=== PATIENT | male | born 1930 | race Caucasian/White ===

== ENCOUNTER 2018-11-08 00:32 | Emergency (ER) | payer OTHER ==
[~2018-11-08] VITALS: Ht 182.9 cm; Wt 72.0 kg
[~2018-11-08 00:32] MED LIST: ATENOLOL; GLIPIZIDE; SIMVASTATIN
[2018-11-08] MEDS ORDERED: DEXTROSE 50% WATER 50ML SYRINGE IV ONE (01:00)
[2018-11-08] MEDS ORDERED: DEXT 5%/0.9% NACL 1,000 ML IV ONE (01:15)
[2018-11-08 01:43] LABS: HEMATOCRIT 35.2 % (42.0-52.0); HEMOGLOBIN 11.6 g/dL (14.0-18.0); MEAN CORPUSCULAR HEMOGLOBIN 28.2 pg (28.0-32.0); MEAN CORPUSCULAR VOLUME 85.4 fL (80.0-94.0); PLATELET 455 x1000/uL (130-400); RED BLOOD CELL COUNT 4.12 mill/uL (4.7-6.1); RED CELL DISTRIBUTION WIDTH 13.2 % (11.6-14.6)
[2018-11-08 01:58] LABS: CHLORIDE 99 mEq/L (98-107)
[2018-11-08 03:49] LABS: CLARITY URINE CLEAR (CLEAR); COLOR URINE YELLOW (YELLOW); KETONES URINE NEGATIVE (NEGATIVE); LEUKOCYTE ESTERASE URINE NEGATIVE (NEGATIVE); NITRITE URINE NEGATIVE (NEGATIVE); OCCULT BLOOD URINE TRACE (NEGATIVE); PROTEIN URINE NEGATIVE (NEGATIVE); SPECIFIC GRAVITY URINE 1.012 (1.005-1.030); UROBILINOGEN URINE 0.2 E.U./dL (0.2-1.0)
[2018-11-08 04:31] VITALS: BP 178/67
== END 2018-11-08 05:10 | disposition short-term general hospital (02) ==
LOC: ER 00:32
DX: E11.649 Type 2 diabetes mellitus with hypoglycemia without coma (principal)
CPT/HCPCS: 36415; 71045; 82962; 85027; 96361; 96374; 99285; J7042